=== PATIENT | female | born 1965 | race American Indian/Alaskan Native ===

== ENCOUNTER 2017-10-08 14:15 | Outpatient (CLI) | payer OTHER ==
[2017-10-08 14:31] LABS: Basophils % (Auto) 0.4 % (0.0-1.8); Eosinophils # (Auto) 0.1 K/mm3 (0.0-0.4); Eosinophils % (Auto) 3.1 % (0.0-4.3); Hematocrit 31.3 % (30.3-42.9); Hemoglobin 9.9 gm/dl (10.1-14.3); Lymphocytes # (Auto) 2.1 K/mm3 (1.2-5.4); Lymphocytes % (Auto) 44.4 % (13.4-35.0); Mean Corpuscular HGB Conc 32 % (30-34); Mean Corpuscular Volume 77 fl (79-97); Monocytes # (Auto) 0.4 K/mm3 (0.0-0.8); Monocytes % (Auto) 7.7 % (0.0-7.3); Platelet Count 197 K/mm3 (140-440); Red Blood Count 4.07 M/mm3 (3.65-5.03); Red Cell Distribution Width 14.9 % (13.2-15.2)
[2017-10-08 14:32] LABS: Mean Corpuscular Hemoglobin 24 pg (28-32)
[2017-10-08 14:43] LABS: Bilirubin,Urine NEG (Negative); Blood,Urine NEG (Negative); Color,Urine Yellow (Yellow); Mucus,Urine FEW /HPF; Urobilinogen,Urine < 2.0 mg/dL (<2.0)
[2017-10-08 14:54] LABS: Calcium 9.6 mg/dL (8.4-10.2)
[2017-10-08 21:55] LABS: Protein/Creatinine Ratio,Urine 1.71
== END 2017-10-08 14:16 | disposition home or self-care (01) ==
LOC: LAB 14:15
PROVIDERS: ATTEND Internal Medicine Nephrology
DX: I12.9 Hypertensive chronic kidney disease with stage 1 through stage 4 chronic kidney disease, or unspecified chronic kidney disease (principal); E11.22 Type 2 diabetes mellitus with diabetic chronic kidney disease; N18.4 Chronic kidney disease, stage 4 (severe); D63.1 Anemia in chronic kidney disease; N25.81 Secondary hyperparathyroidism of renal origin; E87.5 Hyperkalemia
CPT/HCPCS: 36415; 80048; 81001; 82570; 84100; 84156; 85025

== ENCOUNTER 2017-10-16 08:44 | Day surgery (SDC) | payer OTHER ==
[~2017-10-16 08:44] MED LIST: ANCEF/STERILE WATER 2 GM/20 ML 2 GM/20 ML SYRINGE IV NR; HEPARIN 10,000 UNITS/10 ML ONE; NACL 0.9% 1000 ML 1,000 ML IV SCH; NACL 0.9% 500 ML 500 ML ONE; PAPAVERINE ONE; PROTAMINE SULFATE ONE
--- NOTE | 2017-10-16 09:29 | Anesthesia Consultation ---
Anesthesia Consult and Med Hx Date of service: 10/16/17 - Airway Anesthetic Teeth Evaluation: Dentures (upper partial) ROM Head & Neck: Adequate Mental/Hyoid Distance: Adequate Mallampati Class: Class III Intubation Access Assessment: Probably Good - Pulmonary Exam CTA: Yes - Cardiac Exam Cardiac Exam: No Murmur - Pre-Operative Health Status ASA Pre-Surgery Classification: ASA3 Proposed Anesthetic Plan: General - Pre-Anesthesia Comment Pre-Anesthesia Comments: no history of anesthetic difficulty. Tolerates >4 METS - Pulmonary Hx Smoking: No Hx Sleep Apnea: No (VARINDER PRE SCREEN LOW RISK) - Cardiovascular System Hx Hypertension: Yes (X 7 YEARS) - Endocrine Hx End Stage Renal Disease: Yes Hx Insulin Dependent Diabetes: Yes - Hematic Hx Anemia: Yes - Other Systems Hx Alcohol Use: Yes (occasionally) Hx Cancer: No
--- NOTE | 2017-10-16 09:30 | Anesthesia Day of Surgery ---
Anesthesia Day of Surgery - Day of Surgery Patient Examined: Yes Patient H&P Reviewed: Yes Patient is NPO: Yes
[2017-10-16] MEDS ORDERED: ZOFRAN IV PRN (09:31)
[2017-10-16] MEDS ORDERED: NARCAN 0.4 MG/1 ML IV PRN (09:31)
[2017-10-16] MEDS ORDERED: DEMEROL IV PRN (09:31)
[2017-10-16] MEDS ORDERED: DILAUDID IV PRN ×2 (09:31)
[2017-10-16] MEDS ORDERED: NACL BACTERIOSTATIC INFILTRATI ONE (09:37)
[2017-10-16] MEDS ORDERED: NACL 0.9% 1000 ML 1,000 ML IV SCH (10:00)
[2017-10-16] MEDS ORDERED: VERSED IV NR (10:00)
[2017-10-16] MEDS ORDERED: ZOFRAN IV NR (10:00)
[2017-10-16 10:10] LABS: Basophils % (Auto) 0.6 % (0.0-1.8); Eosinophils # (Auto) 0.2 K/mm3 (0.0-0.4); Eosinophils % (Auto) 3.4 % (0.0-4.3); Hematocrit 33.1 % (30.3-42.9); Hemoglobin 10.4 gm/dl (10.1-14.3); Lymphocytes # (Auto) 1.8 K/mm3 (1.2-5.4); Lymphocytes % (Auto) 38.8 % (13.4-35.0); Mean Corpuscular HGB Conc 31 % (30-34); Mean Corpuscular Volume 78 fl (79-97); Monocytes # (Auto) 0.4 K/mm3 (0.0-0.8); Monocytes % (Auto) 7.9 % (0.0-7.3); Platelet Count 176 K/mm3 (140-440); Red Blood Count 4.25 M/mm3 (3.65-5.03); Red Cell Distribution Width 14.4 % (13.2-15.2)
[2017-10-16 10:14] LABS: Mean Corpuscular Hemoglobin 24 pg (28-32)
[2017-10-16] MEDS ORDERED: APRESOLINE IV ONE (10:16)
[2017-10-16] MEDS ORDERED: XYLOCAINE MPF 2% ONE (12:41)
[2017-10-16] MEDS ORDERED: SUBLIMAZE ONE (12:41)
[2017-10-16] MEDS ORDERED: VERSED ONE (12:41)
[2017-10-16] MEDS ORDERED: REGLAN ONE (12:41)
[2017-10-16] MEDS ORDERED: DIPRIVAN 10 MG/ML IV ONE (12:41)
[2017-10-16] MEDS ORDERED: ZOFRAN ONE (12:41)
[2017-10-16] MEDS ORDERED: RIFADIN ONE (12:53)
[2017-10-16] MEDS ORDERED: NACL P/F VIAL (10 ML) 10 ML ONE (12:53)
[2017-10-16] MEDS ORDERED: ePHEDrine 50 MG/5 ML-0.9% NACL IV ONE (13:07)
[2017-10-16] MEDS ORDERED: HEPARIN 10,000 UNITS/10 ML ONE (13:56)
[2017-10-16] MEDS ORDERED: NEO SYNEPHRINE/NS Syringe(OR USE) IV ONE (14:00)
[2017-10-16] MEDS ORDERED: MARCAINE 0.5% INFILTRATI ONE (14:19)
[2017-10-16] MEDS ORDERED: NACL 0.9% IR ONE ×2 (14:19→14:20)
[2017-10-16] MEDS ORDERED: HEPARIN 10,000 UNITS/10 ML 2,000 UNIT in NACL 0.9% 500 ML 500 ML IR ONE (14:20)
[2017-10-16] MEDS ORDERED: HEPARIN IR ONE (14:20)
[2017-10-16] MEDS ORDERED: RIFADIN 600 MG in NACL 0.9% 50 ML IR ONE (14:20)
[2017-10-16] MEDS ORDERED: NACL 0.9% 1000 ML 1,000 ML ONE (14:23)
--- NOTE | 2017-10-16 15:36 | Short Stay Summary ---
Short Stay Documentation Date of service: 10/16/17 Narrative H&P: See H&P - History H&P: obtained from office - Allergies and Medications Current Medications: Allergies No Known Allergies Allergy (Unverified 10/12/17 15:03) Home Medications Medication Instructions Recorded Confirmed Last Taken Type Amlodipine Besylate 5 mg PO DAILY 10/12/17 10/12/17 10/15/17 History Tradjenta 5 mg PO DAILY 10/12/17 10/12/17 10/15/17 History Active Medications Cefazolin Sodium (Ancef/Sterile Water 2 Gm/20 Ml) 2 gm in 20 mls @ 80 mls/hr IV PREOP NR; Protocol Stop: 10/16/17 23:59 Sodium Chloride (Nacl 0.9% 1000 Ml) 1,000 mls @ 42 mls/hr IV DIRECT ZOHAIB Last Admin: 10/16/17 09:45 Dose: 42 mls/hr Sodium Chloride (Nacl 0.9% 1000 Ml) 1,000 mls @ 100 mls/hr IV DIRECT ZOHAIB Midazolam HCl (Versed) 2 mg IV PREOP NR Stop: 10/16/17 23:59 Naloxone HCl (Narcan 0.4 Mg/1 Ml) 0.1 mg IV Q2MIN PRN PRN Reason: Res Rate </= 8 or 02 SAT < 92% - Brief post op/procedure progress note Date of procedure: 10/16/17 Pre-op diagnosis: Chronic Renal Sufficiency Procedure: Creation of left brachial artery to left axillary vein arteriovenous graft with Procal 6 mm bovine mesenteric vein graft Anesthesia: GETA Surgeon: LUKAS RESENDEZ Estimated blood loss: 50-100ml Pathology: none Condition: stable - Disposition Condition at discharge: Good Disposition: DC-01 TO HOME OR SELFCARE Short Stay Discharge Plan Activity: other (no heavy lifting for 2 weeks) Wound: open to air, keep clean and dry, other (okay to wash the wound with soap and water but do not soak in water) Follow up with: LUKAS RESENDEZ MD [Staff Physician] - 14 Days Prescriptions: HYDROcodone/APAP 7.5-325 [[place] 7.5/325] 1 each PO Q6HR PRN #40 tablet PRN Reason: Pain
--- NOTE | 2017-10-16 15:40 | Operative Report ---
Operative Report Operative Report: Date of procedure: 10/16/2017 Pre-operative diagnosis: Chronic Renal Insufficiency Post-operative diagnosis: Same Procedure(s): 1. Creation of Left Brachial Artery to Axillary Vein AV Graft with 6 mm Procal Bovine Mesentric Vein Surgeon: Feliz Garibay MD Extension Worker: None Anesthesia: General Endotracheal Anesthesia EBL: 100 ml Counts: Correct Complications: None Condition: Stable Findings: Successful Creation of Left Arm AV Graft With Palpable Thrill and Palpable Radial Pulse at the Completion of the Case Specimen: None Indication: The patient is a 52-year-old female with a history of chronic renal insufficiency who is not yet on dialysis however it is anticipated that she will require hemodialysis within the next several months. She had a vein mapping and her veins are not adequate for creation of an AV fistula. She requires creation of an AV graft. She was given the risk, benefits, and alternative procedures and consented to the procedure. Description of Procedure: The patient was brought to the operating room and laid in supine position after general endotracheal anesthesia was achieved the left arm was prepped and draped in normal sterile fashion. A longitudinal incision was made on the medial aspect of the arm just proximal to the antecubital crease and carried down to the brachial artery using sharp dissection. The brachial artery was dissected out circumferentially both proximally and distally and controlled with vessel loops. A second incision was created in longitudinal fashion on the medial aspect of the arm just distal to the axillary crease and carried down to the axillary vein using sharp dissection. Axillary vein was dissected out circumferentially and controlled with a vessel loop. I then used a Lakeisha- Wick tunneler to tunnel from the brachial artery incision to the axillary vein incision and then put an 6 mm bovine through the tunnel. I infused with heparinized saline to ensure that it was not twisted or kinked. I put the brachial artery vessel loops on tension controlling the flow and then created an arteriotomy using an 11 blade and Ramirez scissors. I beveled the graft and created an end-to-side anastomosis using 6-0 Prolene running fashion. I clamped the graft just proximal to the anastomosis and then released the vessel loops restoring flow in the brachial artery. I placed quick clot in incision to achieve hemostasis. I cut the proximal end of the graft to the appropriate length and beveled the graft in preparation for a venous anastomosis. I controlled the axillary vein a Satinsky clamp and created a venotomy using an 11 blade and Ramirez scissors. I created an end to side anastomosis using a 6-0 Prolene in running fashion. Prior to completing the anastomosis I flushed the graft to ensure there was no thrombus and then completed the anastamosis. I released all clamps allowing flow into the AV graft which had an excellent thrill. I packed the wound with quick clot to achieve hemostasis. I anesthetized both wounds with Marcaine and then closed both wounds in 2 layers using 3-0 Vicryl in running fashion in the deep dermal layer and 4-0 Monocryl in running fashion the subcuticular layer. I dressed both wounds with Surgicel. The patient tolerated the procedure well all sponge needle and instrument counts were correct the patient was taken to recovery in stable condition.
[2017-10-16] MEDS ORDERED: NORCO 7.5/325 PO PRN (16:52)
[2017-10-16] MEDS ORDERED: DILAUDID IV SCH (16:55)
[2017-10-16 19:11] VITALS: BP 151/73
== END 2017-10-16 18:30 | disposition home or self-care (01) ==
LOC: OR 08:44
PROVIDERS: ATTEND Surgery Vascular Surgery
DX: I12.0 Hypertensive chronic kidney disease with stage 5 chronic kidney disease or end stage renal disease (principal); E11.22 Type 2 diabetes mellitus with diabetic chronic kidney disease; N18.6 End stage renal disease; Z79.899 Other long term (current) drug therapy
CPT/HCPCS: 36415; 36830; 80048; 82962; 85025; C1768; J0360; J0690; J1170; J1644; J2250; J2370; J2405; J2704; J2765; J3010; J3490; J7030; J7040; J2440; J2720

== ENCOUNTER 2017-10-30 12:34 | Outpatient (CLI) | payer OTHER ==
[2017-10-30 13:04] LABS: Bilirubin,Urine NEG (Negative); Blood,Urine NEG (Negative); Color,Urine Yellow (Yellow); Mucus,Urine FEW /HPF; Urobilinogen,Urine < 2.0 mg/dL (<2.0)
[2017-10-30 13:06] LABS: Basophils % (Auto) 0.5 % (0.0-1.8); Eosinophils # (Auto) 0.2 K/mm3 (0.0-0.4); Hematocrit 27.1 % (30.3-42.9); Hemoglobin 8.6 gm/dl (10.1-14.3); Lymphocytes # (Auto) 1.7 K/mm3 (1.2-5.4); Lymphocytes % (Auto) 36.7 % (13.4-35.0); Mean Corpuscular HGB Conc 32 % (30-34); Mean Corpuscular Volume 78 fl (79-97); Monocytes # (Auto) 0.4 K/mm3 (0.0-0.8); Platelet Count 155 K/mm3 (140-440); Red Blood Count 3.49 M/mm3 (3.65-5.03); Red Cell Distribution Width 14.6 % (13.2-15.2)
[2017-10-30 13:10] LABS: Mean Corpuscular Hemoglobin 25 pg (28-32)
[2017-10-30 13:16] LABS: Creatinine,Urine 62.5 mg/dL (0.1-20.0); Protein/Creatinine Ratio,Urine 1.26
== END 2017-10-30 12:35 | disposition home or self-care (01) ==
LOC: LAB 12:34
PROVIDERS: ATTEND Internal Medicine Nephrology
DX: I12.9 Hypertensive chronic kidney disease with stage 1 through stage 4 chronic kidney disease, or unspecified chronic kidney disease (principal); E11.22 Type 2 diabetes mellitus with diabetic chronic kidney disease; N18.4 Chronic kidney disease, stage 4 (severe); E78.5 Hyperlipidemia, unspecified; N25.81 Secondary hyperparathyroidism of renal origin; D63.1 Anemia in chronic kidney disease
CPT/HCPCS: 36415; 80048; 81001; 82570; 84156; 85025

== ENCOUNTER → 2017-11-28 | Outpatient (CLI) | payer OTHER ==
[2017-11-28 13:30] LABS: Basophils % (Auto) 0.3 % (0.0-1.8); Eosinophils # (Auto) 0.2 K/mm3 (0.0-0.4); Eosinophils % (Auto) 4.3 % (0.0-4.3); Hematocrit 31.9 % (30.3-42.9); Hemoglobin 10.1 gm/dl (10.1-14.3); Lymphocytes # (Auto) 1.9 K/mm3 (1.2-5.4); Lymphocytes % (Auto) 38.2 % (13.4-35.0); Mean Corpuscular HGB Conc 32 % (30-34); Mean Corpuscular Volume 78 fl (79-97); Monocytes # (Auto) 0.3 K/mm3 (0.0-0.8); Monocytes % (Auto) 6.4 % (0.0-7.3); Platelet Count 144 K/mm3 (140-440); Red Cell Distribution Width 14.3 % (13.2-15.2)
[2017-11-28 13:32] LABS: Mean Corpuscular Hemoglobin 25 pg (28-32)
[2017-11-28 13:43] LABS: Calcium 9.3 mg/dL (8.4-10.2)
[2017-11-28 13:49] LABS: Creatinine,Urine 59.9 mg/dL (0.1-20.0); Protein/Creatinine Ratio,Urine 1.02
[2017-11-28 14:20] LABS: Mucus,Urine FEW /HPF
[2017-11-28 14:54] LABS: Bilirubin,Urine Negative (Negative); Color,Urine Straw (Yellow)
[2017-11-28 14:55] LABS: Blood,Urine Negative (Negative); Urobilinogen,Urine < 2.0 mg/dL (<2.0)
== END | disposition home or self-care (01) ==
LOC: LAB 12:55
PROVIDERS: ATTEND Internal Medicine Nephrology
DX: I12.0 Hypertensive chronic kidney disease with stage 5 chronic kidney disease or end stage renal disease (principal); E11.22 Type 2 diabetes mellitus with diabetic chronic kidney disease; N18.6 End stage renal disease; D63.1 Anemia in chronic kidney disease; N25.81 Secondary hyperparathyroidism of renal origin; E78.00 Pure hypercholesterolemia, unspecified
CPT/HCPCS: 36415; 80048; 81001; 82570; 83735; 84100; 84156; 85025

== ENCOUNTER 2018-05-16 15:11 | Outpatient (CLI) | payer MEDICAID ==
[2018-05-16 15:49] LABS: Basophils % (Auto) 0.6 % (0.0-1.8); Eosinophils # (Auto) 0.1 K/mm3 (0.0-0.4); Eosinophils % (Auto) 3.1 % (0.0-4.3); Hematocrit 29.2 % (30.3-42.9); Hemoglobin 9.1 gm/dl (10.1-14.3); Lymphocytes # (Auto) 1.5 K/mm3 (1.2-5.4); Mean Corpuscular HGB Conc 31 % (30-34); Mean Corpuscular Volume 79 fl (79-97); Monocytes # (Auto) 0.3 K/mm3 (0.0-0.8); Monocytes % (Auto) 7.4 % (0.0-7.3); Platelet Count 180 K/mm3 (140-440); Red Cell Distribution Width 14.1 % (13.2-15.2)
[2018-05-16 15:56] LABS: Creatinine,Urine 83.1 mg/dL (0.1-20.0)
[2018-05-16 16:00] LABS: Calcium 8.8 mg/dL (8.4-10.2)
[2018-05-16 16:05] LABS: Bacteria,Urine 1+ /HPF (Negative); Bilirubin,Urine NEG (Negative); Blood,Urine NEG (Negative); Color,Urine Straw (Yellow); Mucus,Urine FEW /HPF; Urobilinogen,Urine < 2.0 mg/dL (<2.0)
== END 2018-05-16 15:12 | disposition home or self-care (01) ==
LOC: LAB 15:11
PROVIDERS: ATTEND Internal Medicine Nephrology
DX: E11.22 Type 2 diabetes mellitus with diabetic chronic kidney disease (principal); E78.00 Pure hypercholesterolemia, unspecified; I12.0 Hypertensive chronic kidney disease with stage 5 chronic kidney disease or end stage renal disease; N18.6 End stage renal disease
CPT/HCPCS: 36415; 80048; 81001; 82570; 84156; 85025

== ENCOUNTER 2018-06-25 16:02 | Outpatient (CLI) | payer MEDICAID, OTHER ==
[2018-06-25 16:57] LABS: Hematocrit 28.5 % (30.3-42.9); Hemoglobin 9.2 gm/dl (10.1-14.3); Mean Corpuscular HGB Conc 32 % (30-34); Mean Corpuscular Volume 79 fl (79-97); Platelet Count 169 K/mm3 (140-440); Red Blood Count 3.61 M/mm3 (3.65-5.03)
[2018-06-25 17:10] LABS: Bacteria,Urine 2+ /HPF (Negative); Bilirubin,Urine NEG (Negative); Blood,Urine NEG (Negative); Color,Urine Yellow (Yellow); Mucus,Urine 3+ /HPF; Urobilinogen,Urine < 2.0 mg/dL (<2.0)
[2018-06-25 17:12] LABS: Creatinine,Urine 70.7 mg/dL (0.1-20.0); Protein/Creatinine Ratio,Urine 1.56
[2018-06-25 17:24] LABS: Calcium 8.6 mg/dL (8.4-10.2)
== END 2018-06-25 16:03 | disposition home or self-care (01) ==
LOC: LAB 16:02
PROVIDERS: ATTEND Internal Medicine Nephrology
DX: E11.22 Type 2 diabetes mellitus with diabetic chronic kidney disease (principal); I12.0 Hypertensive chronic kidney disease with stage 5 chronic kidney disease or end stage renal disease; N18.6 End stage renal disease; N25.81 Secondary hyperparathyroidism of renal origin; E78.00 Pure hypercholesterolemia, unspecified
CPT/HCPCS: 36415; 80048; 81001; 82570; 83970; 84100; 84156; 85027; 87350